=== PATIENT | female | born 1970 | race Two or more races ===

== ENCOUNTER 2016-09-06 22:36 | Emergency (ER) | payer OTHER ==
--- NOTE | 2016-09-07 00:22 | ED ---
Upper Extremity Pain - HPI Summary HPI Summary: Patient presents to ED with CC of left dorsum of hand swelling and pain without recent injury. She has fractured the hand before. She states she has been using it more frequently and carrying water recently. She denies recent trauma. Denies numbness, tingling, color or temperature changes. - History of Current Complaint Chief Complaint: EDExtremityUpper Stated Complaint: RT HAND SWOLLEN Time Seen by Provider: 09/06/16 22:56 Hx Obtained From: Patient Mechanism Of Injury: Unknown Onset/Duration: Started Days Ago Timing: Constant Severity Initially: Moderate Severity Currently: Moderate Character: Dull Aggravating Factor(s): Lifting, Flexion, Extension Alleviating Factor(s): Rest, Ice Associated Signs & Symptoms: Positive: Swelling Related History: Similar Episode/Dx As, Dominant Hand Left - previous injury - Risk Factors Non-Orthopedic Risk Factor: Negative DVT Risk Factors: Negative Septic Arthritis Risk Factor: Negative Compartment Syndrome Risk Factors: Pain - Allergies/Home Medications Allergies/Adverse Reactions: Allergies Allergy/AdvReac Type Severity Reaction Status Date / Time No Known Allergies Allergy Verified 09/06/16 22:41 PMH/Surg Hx/FS Hx/Imm Hx Previously Healthy: Yes - Immunization History Hx Pertussis Vaccination: No Immunizations Up to Date: Unable to Obtain/Confirm Infectious Disease History: No Infectious Disease History: Denies: Traveled Outside the [place] in Last 30 Days - Social History Occupation: Unemployed Lives: With Family Alcohol Use: Occasionally Hx Substance Use: No Substance Use Type: Reports: None Hx Tobacco Use: No Smoking Status (MU): Never Smoked Tobacco Do You Chew or Dip Tobacco: No Review of Systems Constitutional: Negative Eyes: Negative Cardiovascular: Negative Respiratory: Negative Positive: no symptoms reported, see HPI Positive: Arthralgia Skin: Negative Neurological: Negative Psychological: Normal All Other Systems Reviewed And Are Negative: Yes Physical Exam Triage Information Reviewed: Yes Vital Signs On Initial Exam: Initial Vitals Temp Pulse Resp BP Pulse Ox 97.3 F 66 16 151/96 100 09/06/16 22:38 09/06/16 22:38 09/06/16 22:38 09/06/16 22:38 09/06/16 22:38 Vital Signs Reviewed: Yes Appearance: Positive: Well-Appearing, No Pain Distress, Well-Nourished Skin: Positive: Warm, Skin Color Reflects Adequate Perfusion, Other - swelling over dorsum of the right hand Head/Face: Positive: Normal Head/Face Inspection Eyes: Positive: EOMI, PAOLA, Conjunctiva Clear Neck: Positive: Supple, No Lymphadenopathy Respiratory/Lung Sounds: Positive: Clear to Auscultation, Breath Sounds Present Cardiovascular: Positive: Normal, RRR, Pulses are Symmetrical in both Upper and Lower Extremities Musculoskeletal: Positive: Normal, Strength/ROM Intact Neurological: Positive: Sensory/Motor Intact, Alert, Oriented to Person Place, Time, Speech Normal Psychiatric: Positive: Normal AVPU Assessment: Alert - Treva Coma Scale Best Eye Response: 4 - Spontaneous Best Motor Response: 6 - Obeys Commands Best Verbal Response: 5 - Oriented Diagnostics - Vital Signs Vital Signs Temp Pulse Resp BP Pulse Ox 09/06/16 22:38 97.3 F 66 16 151/96 100 - Laboratory Lab Statement: Any lab studies that have been ordered have been reviewed, and results considered in the medical decision making process. Course/Dx - Course Course Of Treatment: Xray of right hand. Negative for any acute fractures. Swelling noted. Likely arthritic pain d/t previous injury over the area. Anthony wrapped for comfort. Patient will follow up with PCP and take tylenol for relief d/t GERD sxs. - Diagnoses Differential Diagnosis/HQI/PQRI: Positive: Arthritis, Fracture (Open), Fracture (Closed), Strain, Sprain Provider Diagnoses: Arthritis Discharge - Discharge Plan Condition: Stable Disposition: HOME Patient Education Materials: Arthritis (ED) Referrals: Ella Dias PA [Primary Care Provider] - Juan Lin MD [Medical Doctor] - Additional Instructions: Tylenol for any discomfort Continue with anthony wrap over hand as needed for swelling Follow up with PCP I have given you a referral to orthopedics if symptoms worsen or fail to improve Moist heat to the area as needed for pain
[2016-09-07 00:28] VITALS: BP 104/56
--- NOTE | 2016-09-07 08:48 | RAD ---
Indication: Swollen right hand. 4 views of the right hand demonstrates no fracture. No other bone or joint abnormality is noted. IMPRESSION: No fracture of the right hand is noted.
== END 2016-09-07 00:27 | disposition home or self-care (01) ==
LOC: ED 22:36
DX: M19.041 Primary osteoarthritis, right hand (principal)
CPT/HCPCS: 99282

== ENCOUNTER 2017-09-10 18:22 | Emergency (ER) | payer MEDICAID ==
[2017-09-10 19:34] VITALS: BP 131/94
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
== END 2017-09-10 19:29 | disposition home or self-care (01) ==
LOC: ED 18:22 → MERGE 18:22 → ED 19:29
DX: R55 Syncope and collapse (principal)
CPT/HCPCS: 99282